=== PATIENT | female | born 1975 | race Caucasian/White ===

== ENCOUNTER 2017-08-31 22:25 | Emergency (ER) | payer MEDICARE, MEDICAID ==
[~2017-08-31] VITALS: Ht 167.6 cm; Wt 113.0 kg
[~2017-08-31 22:25] MED LIST: ALBU8.5H8 INH; ARMO250T4 PO; ASPI-1265 PO; BACL10TA PO; CALC667T5 PO; DOCU-28 PO; DULO-31 PO; ESOM40CA30 PO; ESTR2TAB PO; FAMO-128 PO; FLUT1DIS4 INH; HYDR-565 PO; LAMO150T2 PO; LEVO175T2 PO; METF500T7 PO; METO-292 PO; MULT-933 PO; ONDA4TAB12 PO; PREG150C PO; ROSU20TA PO; SENN1TAB5 PO; SITA25TA3 PO; VIT1TABL91 PO; ZOLP10TA5 PO; [UNRECOGNIZED DRUG - OTHER] PO; loratadine PO
[2017-08-31] MEDS ORDERED: ondansetron/PF 4mg/2ml inj IV ONE (23:20)
[2017-08-31] MEDS ORDERED: normal saline 1000ML IV soln IVB ONE (23:20)
[2017-08-31] MEDS ORDERED: morphine 4 MG/ML inj SYRINge IV ONE (23:20)
[2017-08-31 23:40] LABS: BASOPHILS % (AUTO) 0.4 % (0-1); EOSINOPHILS # (AUTO) 0.2 X10'3 (0-0.9); HEMOGLOBIN 10.8 g/dl (12.0-16.0); LYMPHOCYTES # (AUTO) 1.8 X10'3 (1.1-4.8); LYMPHOCYTES % (AUTO) 14.5 % (21-51); MEAN CORPUSCULAR HEMOGLOBIN 25.3 PG (27.0-31.0); MEAN CORPUSCULAR HGB CONC 32.7 % (33.0-36.5); MEAN CORPUSCULAR VOLUME 77.3 FL (78-98); MEAN PLATELET VOLUME 9.6 FL (7.4-10.4); MONOCYTES # (AUTO) 0.2 X10'3 (0-0.9); MONOCYTES % (AUTO) 1.3 % (2-12); NEUTROPHILS % (AUTO) 81.8 % (42-75); PLATELET COUNT 274 X10'3 (140-440); RED BLOOD COUNT 4.27 X10'6 (4.20-5.60); RED CELL DISTRIBUTION WIDTH 17.3 % (11.5-14.5); WHITE BLOOD COUNT 12.2 X10'3 (4.5-11.0)
[2017-08-31 23:53] LABS: ALANINE AMINOTRANSFERASE 33 U/L (12-78); ALBUMIN 3.1 G/DL (3.4-5.0); ALBUMIN/GLOBULIN RATIO 0.8 (1.1-1.5); ALKALINE PHOSPHATASE 59 IU/L (46-116); ANION GAP 10 (8-16); ASPARTATE AMINO TRANSFERASE 37 U/L (10-37); BILIRUBIN,TOTAL 0.5 MG/DL (0.1-1.0); BLOOD UREA NITROGEN 9 MG/DL (7-18); CALCIUM 8.8 MG/DL (8.5-10.1); CHLORIDE 101 MMOL/L (99-107); GLUCOSE 155 MG/DL (70-104); LIPASE 169 U/L (73-393); POTASSIUM 3.9 MMOL/L (3.5-5.1); SODIUM 137 MMOL/L (135-145); TOTAL CARBON DIOXIDE 25.6 MMOL/L (24-32); TOTAL PROTEIN 7.1 G/DL (6.4-8.2); eGFR 69 ML/MIN
[2017-09-01 00:01] LABS: UA COLLECTION TYPE CLN CATCH MIDSTREAM
[2017-09-01 00:02] LABS: CLARITY,URINE CLEAR (Clear); COLOR,URINE YELLOW (Yellow); GLUCOSE, URINE >=1000 mg/dl (Neg); KETONES,URINE NEGATIVE (Neg); LEUKOCYTE ESTERASE ,URINE NEGATIVE (Neg); NITRITES, URINE NEGATIVE (Neg); OCCULT BLOOD,URINE NEGATIVE (Neg); PH,URINE 5.5 (4.8-8.0); PROTEIN,URINE NEGATIVE (Neg); UROBILINOGEN,URINE 0.2 E.U/dL (0.2-1.0)
[2017-09-01 00:21] LABS: BACTERIA,URINE FEW /HPF (Neg); RBC,URINE NONE SEEN /HPF (0-2); WBC,URINE 0-4 /HPF (0-4)
[2017-09-01 00:22] LABS: MUCUS STRANDS NONE SEEN /LPF (Neg); SQUAMOUS EPITHELIAL CELL,UR FEW /LPF (FEW); YEAST FEW /HPF (NEGATIVE)
[2017-09-01] MEDS ORDERED: ibuprofen tablet 400 MG TABLET PO ONE (01:05)
[2017-09-01] MEDS ORDERED: IBUP-1984 PO (01:06)
[2017-09-01] MEDS ORDERED: MAGN296S50 PO (01:06)
[2017-09-01 01:23] LABS: ANISOCYTOSIS 1+; PLATELET ESTIMATE NORMAL; POLYCHROMASIA 1+
[2017-09-01 01:26] VITALS: BP 147/68
== END 2017-09-01 01:27 | disposition home or self-care (01) ==
LOC: ER 22:26
DX: B34.9 Viral infection, unspecified (principal); K59.00 Constipation, unspecified; D64.9 Anemia, unspecified; G89.29 Other chronic pain; E11.9 Type 2 diabetes mellitus without complications; Z90.710 Acquired absence of both cervix and uterus; Z88.1 Allergy status to other antibiotic agents; Z79.82 Long term (current) use of aspirin; Z79.84 Long term (current) use of oral hypoglycemic drugs; Z79.899 Other long term (current) drug therapy
CPT/HCPCS: 36415; 74176; 80053; 81001; 83690; 85025; 96361; 96374; 96375; 99285; J2270; J2405; J7030; 81003

== ENCOUNTER 2019-02-13 07:38 | Emergency (ER) | payer MEDICARE, MEDICAID ==
[~2019-02-13] VITALS: Ht 167.6 cm; Wt 127.7 kg
[~2019-02-13 07:38] MED LIST changes: -CALC667T5 PO; +CALC667T6 PO; -ESOM40CA30 PO; +ESOM40CA49 PO; +HYDR-4353 PO; -HYDR-565 PO; +MAGN296S50 PO; +METF500T20 PO; -METF500T7 PO; -ROSU20TA PO; +ROSU20TA2 PO; +SENN-250 PO; -SENN1TAB5 PO
[2019-02-13] MEDS ORDERED: SULF1TAB49 PO (08:37)
[2019-02-13 09:13] VITALS: BP 155/74
== END 2019-02-13 09:14 | disposition home or self-care (01) ==
LOC: ER 07:39
DX: S60.562A Insect bite (nonvenomous) of left hand, initial encounter (principal); L03.114 Cellulitis of left upper limb; Z88.1 Allergy status to other antibiotic agents; Z88.8 Allergy status to other drugs, medicaments and biological substances; Z79.82 Long term (current) use of aspirin; Z79.84 Long term (current) use of oral hypoglycemic drugs; Z79.899 Other long term (current) drug therapy; W57.XXXA Bitten or stung by nonvenomous insect and other nonvenomous arthropods, initial encounter; Y93.89 Activity, other specified; Y92.89 Other specified places as the place of occurrence of the external cause; Y99.8 Other external cause status
CPT/HCPCS: 99283

== ENCOUNTER 2020-06-17 15:38 | Outpatient (CLI) | payer MEDICARE, MEDICAID ==
[~2020-06-17 15:38] MED LIST changes: -MAGN296S50 PO; +MAGN296S70 PO; +METF-900 PO; -METF500T20 PO
== END 2020-06-17 23:59 | disposition home or self-care (01) ==
LOC: RAD 15:38
DX: Z79.899 Other long term (current) drug therapy (principal)
CPT/HCPCS: 93005

== ENCOUNTER 2021-05-01 17:08 | Emergency (ER) | payer MEDICARE, MEDICAID ==
[~2021-05-01] VITALS: Ht 167.6 cm; Wt 126.4 kg
[~2021-05-01 17:08] MED LIST changes: +ALBU8.5H17 INH; -ALBU8.5H8 INH; -ESTR2TAB PO; +ESTR2TAB50 PO
[2021-05-01 17:11] VITALS: BP 148/79
[2021-05-01 17:45] LABS: URINE HCG NEGATIVE (NEG)
[2021-05-01 17:49] LABS: CLARITY,URINE CLEAR (Clear); COLOR,URINE YELLOW (Yellow); GLUCOSE, URINE >=1000 mg/dl (Neg); KETONES,URINE NEGATIVE (Neg); LEUKOCYTE ESTERASE ,URINE NEGATIVE (Neg); NITRITES, URINE NEGATIVE (Neg); OCCULT BLOOD,URINE NEGATIVE (Neg); PROTEIN,URINE NEGATIVE (Neg); UROBILINOGEN,URINE 0.2 E.U/dL (0.2-1.0)
[2021-05-01 17:56] LABS: UA COLLECTION TYPE CLN CATCH MIDSTREAM
[2021-05-01 17:57] LABS: BACTERIA,URINE NONE SEEN /HPF (Neg); MUCUS STRANDS NONE SEEN /LPF (Neg); RBC,URINE NONE SEEN /HPF (0-2); SQUAMOUS EPITHELIAL CELL,UR FEW /LPF (FEW); WBC,URINE NONE SEEN /HPF (0-4); YEAST FEW /HPF (NEGATIVE)
[2021-05-01 18:58] LABS: BASOPHILS # (AUTO) 0.1 X10'3 (0-0.2); BASOPHILS % (AUTO) 0.8 % (0-1); EOSINOPHILS # (AUTO) 0.2 X10'3 (0-0.9); EOSINOPHILS % (AUTO) 2.2 % (0-6); HEMOGLOBIN 12.3 g/dl (12.0-16.0); LYMPHOCYTES # (AUTO) 3.4 X10'3 (1.1-4.8); LYMPHOCYTES % (AUTO) 33.5 % (21-51); MEAN CORPUSCULAR HEMOGLOBIN 28.6 PG (27.0-31.0); MEAN CORPUSCULAR VOLUME 84.1 FL (78-98); MEAN PLATELET VOLUME 8.8 FL (7.4-10.4); MONOCYTES # (AUTO) 0.4 X10'3 (0-0.9); MONOCYTES % (AUTO) 3.8 % (2-12); NEUTROPHILS # (AUTO) 6.1 X10'3 (1.8-7.7); NEUTROPHILS % (AUTO) 59.7 % (42-75); PLATELET COUNT 271 X10'3 (140-440); RED BLOOD COUNT 4.28 X10'6 (4.20-5.60); RED CELL DISTRIBUTION WIDTH 16.7 % (11.5-14.5); WHITE BLOOD COUNT 10.3 X10'3 (4.5-11.0)
[2021-05-01 19:05] LABS: ALANINE AMINOTRANSFERASE 48 U/L (12-78); ALBUMIN 3.4 G/DL (3.4-5.0); ALBUMIN/GLOBULIN RATIO 0.8 (1.1-1.5); ALKALINE PHOSPHATASE 94 IU/L (46-116); ANION GAP 6 (8-16); ASPARTATE AMINO TRANSFERASE 39 U/L (10-37); BILIRUBIN,TOTAL 0.4 MG/DL (0.1-1.0); BLOOD UREA NITROGEN 11 MG/DL (7-18); BUN/CREATININE RATIO 14.3 (6.6-38.0); CALCIUM 9.3 MG/DL (8.5-10.1); CHLORIDE 103 MMOL/L (99-107); CREATININE 0.77 MG/DL (0.40-0.90); GLUCOSE 185 MG/DL (70-104); POTASSIUM 3.9 MMOL/L (3.5-5.1); SODIUM 137 MMOL/L (135-145); TOTAL CARBON DIOXIDE 28.1 MMOL/L (24-32); TOTAL PROTEIN 7.5 G/DL (6.4-8.2); eGFR 81 ML/MIN
== END 2021-05-01 19:15 | disposition home or self-care (01) ==
LOC: ER 17:08
DX: E11.649 Type 2 diabetes mellitus with hypoglycemia without coma (principal); E11.9 Type 2 diabetes mellitus without complications; G89.29 Other chronic pain; M54.2 Cervicalgia; Z88.1 Allergy status to other antibiotic agents; Z88.8 Allergy status to other drugs, medicaments and biological substances; Z79.899 Other long term (current) drug therapy
CPT/HCPCS: 36415; 80053; 81001; 81025; 82948; 85025; 99283

== ENCOUNTER 2022-02-06 23:05 | Emergency (ER) | payer MEDICARE, MEDICAID ==
[~2022-02-06] VITALS: Ht 167.6 cm; Wt 129.6 kg
[~2022-02-06 23:05] MED LIST changes: +ALBU8.5H17 IH; -ALBU8.5H17 INH; +ARMO200T4 PO; -ARMO250T4 PO; -ASPI-1265 PO; -BACL10TA PO; +BACL20TA PO; +BUPR-317 PO; -CALC667T6 PO; +CANA300T PO; -DOCU-28 PO; -DULO-31 PO; -ESOM40CA49 PO; -ESTR2TAB50 PO; -FAMO-128 PO; +FLUO40CA PO; -FLUT1DIS4 INH; +GLIM4TAB7 PO; -HYDR-4353 PO; -LAMO150T2 PO; +LANTUS SQ; -LEVO175T2 PO; +LEVO75TA98 PO; +LINA5TAB4 PO; +LORA10TA7 PO; -MAGN296S70 PO; +METF-1203 PO; -METF-900 PO; -METO-292 PO; +MONT-40 PO; -MULT-933 PO; -ONDA4TAB12 PO; +OXCA300T16 PO; -PREG150C PO; +PREG150C46 PO; -ROSU20TA2 PO; +ROSU40TA22 PO; -SENN-250 PO; -SITA25TA3 PO; -VIT1TABL91 PO; -ZOLP10TA5 PO; +ZOLP5TAB8 PO; -[UNRECOGNIZED DRUG - OTHER] PO; -loratadine PO
--- NOTE | 2022-02-06 23:33 | NUR ---
PT TO XRAY VIA WHEEKL CHAIR . PT THEN TAKEN TO ROOM 16
[2022-02-06 23:47] LABS: BASOPHILS # (AUTO) 0.1 X10'3 (0-0.2); BASOPHILS % (AUTO) 1.1 % (0-1); EOSINOPHILS # (AUTO) 0.2 X10'3 (0-0.9); EOSINOPHILS % (AUTO) 2.5 % (0-6); HEMOGLOBIN 12.1 g/dl (12.0-16.0); LYMPHOCYTES # (AUTO) 4.4 X10'3 (1.1-4.8); LYMPHOCYTES % (AUTO) 44.8 % (21-51); MEAN CORPUSCULAR HEMOGLOBIN 27.3 PG (27.0-31.0); MEAN CORPUSCULAR HGB CONC 32.8 g/dL (33.0-36.5); MEAN CORPUSCULAR VOLUME 83.3 FL (78-98); MEAN PLATELET VOLUME 8.8 FL (7.4-10.4); MONOCYTES # (AUTO) 0.6 X10'3 (0-0.9); MONOCYTES % (AUTO) 5.9 % (2-12); NEUTROPHILS # (AUTO) 4.5 X10'3 (1.8-7.7); NEUTROPHILS % (AUTO) 45.7 % (42-75); PLATELET COUNT 239 X10'3 (140-440); RED BLOOD COUNT 4.44 X10'6 (4.20-5.60); WHITE BLOOD COUNT 9.8 X10'3 (4.5-11.0)
[2022-02-06 23:52] LABS: ALANINE AMINOTRANSFERASE 76 U/L (12-78); ALBUMIN 3.3 G/DL (3.4-5.0); ALBUMIN/GLOBULIN RATIO 0.9 (1.1-1.5); ALKALINE PHOSPHATASE 86 IU/L (46-116); ANION GAP 8 (8-16); ASPARTATE AMINO TRANSFERASE 51 U/L (10-37); BILIRUBIN,TOTAL 0.2 MG/DL (0.1-1.0); BLOOD UREA NITROGEN 10 MG/DL (7-18); BUN/CREATININE RATIO 12.2 (6.6-38.0); CALCIUM 8.7 MG/DL (8.5-10.1); CHLORIDE 100 MMOL/L (99-107); CREATININE 0.82 MG/DL (0.40-0.90); GLUCOSE 244 MG/DL (70-104); SODIUM 137 MMOL/L (135-145); TOTAL CARBON DIOXIDE 28.6 MMOL/L (24-32); TOTAL PROTEIN 7.1 G/DL (6.4-8.2); eGFR 75 ML/MIN
[2022-02-07 00:04] LABS: POTASSIUM 3.8 MMOL/L (3.5-5.1)
[2022-02-07] MEDS ORDERED: mag hydrox/Alum hydrox/simeth 30ml oral suspension PO ONE (01:00)
[2022-02-07] MEDS ORDERED: LIDOcaine Viscous 15ml cup MM PRN (01:00)
[2022-02-07] MEDS ORDERED: morphine 2 MG/ML inj. syringe IV ONE (01:00)
[2022-02-07] MEDS ORDERED: aspirin 81mg tab.chew PO ONE (01:00)
[2022-02-07] MEDS ORDERED: ondansetron/PF 4mg/2ml inj IV ONE (01:00)
[2022-02-07 01:24] LABS: D-DIMER 0.21 MG/L FEU (0-0.50)
[2022-02-07 04:48] VITALS: BP 137/60
== END 2022-02-07 04:53 | disposition home or self-care (01) ==
LOC: ER 23:05
DX: R07.89 Other chest pain (principal); E78.00 Pure hypercholesterolemia, unspecified; E11.9 Type 2 diabetes mellitus without complications; G89.29 Other chronic pain; Z90.710 Acquired absence of both cervix and uterus; Z56.0 Unemployment, unspecified; Z88.1 Allergy status to other antibiotic agents; Z79.4 Long term (current) use of insulin; Z79.899 Other long term (current) drug therapy
CPT/HCPCS: 36415; 71045; 80053; 83880; 84484; 85025; 85379; 93005; 96374; 99285; J2405

== ENCOUNTER 2022-02-13 09:51 | Emergency (ER) | payer MEDICARE, MEDICAID ==
[~2022-02-13] VITALS: Ht 167.6 cm; Wt 130.9 kg
[2022-02-13 09:53] VITALS: BP 176/79
[2022-02-13] MEDS ORDERED: ketorolac trometh. 30mg/ml inj. IM ONE (10:30)
[2022-02-13 10:45] LABS: CLARITY,URINE CLEAR (Clear); COLOR,URINE YELLOW (Yellow); GLUCOSE, URINE >=1000 mg/dl (Neg); KETONES,URINE NEGATIVE (Neg); LEUKOCYTE ESTERASE ,URINE NEGATIVE (Neg); NITRITES, URINE NEGATIVE (Neg); OCCULT BLOOD,URINE NEGATIVE (Neg); PH,URINE 5.5 (4.8-8.0); PROTEIN,URINE NEGATIVE (Neg); UROBILINOGEN,URINE 0.2 E.U/dL (0.2-1.0)
[2022-02-13 10:47] LABS: URINE HCG NEGATIVE (NEG)
[2022-02-13 10:52] LABS: UA COLLECTION TYPE CLN CATCH MIDSTREAM
[2022-02-13 10:53] LABS: BACTERIA,URINE NONE SEEN /HPF (Neg); MUCUS STRANDS NONE SEEN /LPF (Neg); RBC,URINE 0-2 /HPF (0-2); SQUAMOUS EPITHELIAL CELL,UR FEW /LPF (FEW); WBC,URINE NONE SEEN /HPF (0-4)
[2022-02-13] MEDS ORDERED: oxyCODONE IR 5mg (immed. release) tablet PO ONE (11:00)
[2022-02-13] MEDS ORDERED: OXYC-481 PO (11:51)
== END 2022-02-13 12:09 | disposition home or self-care (01) ==
LOC: ER 09:51
DX: M54.89 Other dorsalgia (principal); E78.00 Pure hypercholesterolemia, unspecified; E11.9 Type 2 diabetes mellitus without complications; G89.29 Other chronic pain; Z90.710 Acquired absence of both cervix and uterus; Z56.0 Unemployment, unspecified; Z88.1 Allergy status to other antibiotic agents; Z91.013 Allergy to seafood; Z88.8 Allergy status to other drugs, medicaments and biological substances; Z79.4 Long term (current) use of insulin; Z79.899 Other long term (current) drug therapy
CPT/HCPCS: 71045; 81001; 81025; 96372; 99285; J1885

== ENCOUNTER 2022-02-14 05:09 | Emergency (ER) | payer MEDICARE, MEDICAID ==
[~2022-02-14] VITALS: Ht 167.6 cm; Wt 130.9 kg
[~2022-02-14 05:09] MED LIST changes: +OXYC-481 PO
[2022-02-14] MEDS ORDERED: mag hydrox/Alum hydrox/simeth 30ml oral suspension PO ONE (07:05)
[2022-02-14] MEDS ORDERED: LIDOcaine Viscous 15ml cup MM ONE (07:05)
[2022-02-14] MEDS ORDERED: ketorolac tromethamine 15mg/ml inj. IV ONE (07:05)
[2022-02-14 07:51] LABS: BASOPHILS # (AUTO) 0.1 X10'3 (0-0.2); BASOPHILS % (AUTO) 1.2 % (0-1); EOSINOPHILS # (AUTO) 0.2 X10'3 (0-0.9); EOSINOPHILS % (AUTO) 1.7 % (0-6); HEMATOCRIT 38.1 % (35.0-45.0); HEMOGLOBIN 12.7 g/dl (12.0-16.0); LYMPHOCYTES # (AUTO) 3.2 X10'3 (1.1-4.8); LYMPHOCYTES % (AUTO) 31.2 % (21-51); MEAN CORPUSCULAR HEMOGLOBIN 27.8 PG (27.0-31.0); MEAN CORPUSCULAR HGB CONC 33.4 g/dL (33.0-36.5); MEAN CORPUSCULAR VOLUME 83.2 FL (78-98); MEAN PLATELET VOLUME 9.1 FL (7.4-10.4); MONOCYTES # (AUTO) 0.5 X10'3 (0-0.9); MONOCYTES % (AUTO) 5.1 % (2-12); NEUTROPHILS # (AUTO) 6.2 X10'3 (1.8-7.7); NEUTROPHILS % (AUTO) 60.8 % (42-75); PLATELET COUNT 234 X10'3 (140-440); RED BLOOD COUNT 4.57 X10'6 (4.20-5.60); RED CELL DISTRIBUTION WIDTH 16.3 % (11.5-14.5); WHITE BLOOD COUNT 10.2 X10'3 (4.5-11.0)
[2022-02-14 07:54] LABS: CLARITY,URINE CLEAR (Clear); COLOR,URINE YELLOW (Yellow); GLUCOSE, URINE >=1000 mg/dl (Neg); KETONES,URINE NEGATIVE (Neg); LEUKOCYTE ESTERASE ,URINE NEGATIVE (Neg); NITRITES, URINE NEGATIVE (Neg); OCCULT BLOOD,URINE NEGATIVE (Neg); PH,URINE 5.5 (4.8-8.0); PROTEIN,URINE NEGATIVE (Neg); UROBILINOGEN,URINE 0.2 E.U/dL (0.2-1.0)
[2022-02-14 07:54] LABS: ALANINE AMINOTRANSFERASE 70 U/L (12-78); ALBUMIN 3.6 G/DL (3.4-5.0); ALBUMIN/GLOBULIN RATIO 0.9 (1.1-1.5); ALKALINE PHOSPHATASE 75 IU/L (46-116); ANION GAP 4 (8-16); ASPARTATE AMINO TRANSFERASE 53 U/L (10-37); BILIRUBIN,TOTAL 0.3 MG/DL (0.1-1.0); BLOOD UREA NITROGEN 18 MG/DL (7-18); BUN/CREATININE RATIO 26.1 (6.6-38.0); CALCIUM 8.7 MG/DL (8.5-10.1); CHLORIDE 102 MMOL/L (99-107); CREATININE 0.69 MG/DL (0.40-0.90); GLUCOSE 185 MG/DL (70-104); POTASSIUM 3.8 MMOL/L (3.5-5.1); SODIUM 134 MMOL/L (135-145); TOTAL CARBON DIOXIDE 28.3 MMOL/L (24-32); TOTAL PROTEIN 7.4 G/DL (6.4-8.2); eGFR > 90 ML/MIN
[2022-02-14 07:57] LABS: LIPASE 98 U/L (73-393)
[2022-02-14 08:02] LABS: UA COLLECTION TYPE CLN CATCH MIDSTREAM
[2022-02-14 08:04] LABS: BACTERIA,URINE NONE SEEN /HPF (Neg); MUCUS STRANDS MODERATE /LPF (Neg); RBC,URINE NONE SEEN /HPF (0-2); SQUAMOUS EPITHELIAL CELL,UR MODERATE /LPF (FEW); WBC,URINE 0-4 /HPF (0-4)
[2022-02-14] MEDS ORDERED: acetaminophen 325mg tablet PO ONE (09:05)
[2022-02-14] MEDS ORDERED: LIDOcaine 5% patch TP ONE (09:05)
[2022-02-14 09:14] LABS: D-DIMER < 0.19 MG/L FEU (0-0.50)
[2022-02-14] MEDS ORDERED: morphine 4 MG/ML inj SYRINge IV ONE (10:25)
[2022-02-14 10:43] LABS: URINE HCG NEGATIVE (NEG)
[2022-02-14 13:12] VITALS: BP 148/82
== END 2022-02-14 13:14 | disposition home or self-care (01) ==
LOC: ER 05:09
DX: M54.50 Low back pain, unspecified (principal); R10.84 Generalized abdominal pain; E78.00 Pure hypercholesterolemia, unspecified; E11.9 Type 2 diabetes mellitus without complications; G89.29 Other chronic pain; Z90.710 Acquired absence of both cervix and uterus; Z56.0 Unemployment, unspecified; Z91.013 Allergy to seafood; Z88.1 Allergy status to other antibiotic agents; Z88.8 Allergy status to other drugs, medicaments and biological substances; Z79.4 Long term (current) use of insulin; Z79.899 Other long term (current) drug therapy
CPT/HCPCS: 36415; 71045; 74176; 80053; 81001; 81025; 83690; 84484; 85025; 85379; 85610; 96374; 96375; 99285; J1885; J2270

== ENCOUNTER 2022-05-24 12:47 | Day surgery (SDC) | payer MEDICARE, MEDICAID ==
[2022-05-20 09:28] LABS: BASOPHILS # (AUTO) 0.1 X10'3 (0-0.2); BASOPHILS % (AUTO) 1.1 % (0-1); EOSINOPHILS # (AUTO) 0.2 X10'3 (0-0.9); EOSINOPHILS % (AUTO) 1.8 % (0-6); HEMATOCRIT 37.5 % (35.0-45.0); HEMOGLOBIN 12.1 g/dl (12.0-16.0); LYMPHOCYTES # (AUTO) 3.4 X10'3 (1.1-4.8); MEAN CORPUSCULAR HEMOGLOBIN 27.6 PG (27.0-31.0); MEAN CORPUSCULAR HGB CONC 32.1 g/dL (33.0-36.5); MEAN CORPUSCULAR VOLUME 85.9 FL (78-98); MEAN PLATELET VOLUME 8.7 FL (7.4-10.4); MONOCYTES # (AUTO) 0.4 X10'3 (0-0.9); NEUTROPHILS # (AUTO) 6.9 X10'3 (1.8-7.7); NEUTROPHILS % (AUTO) 62.1 % (42-75); PLATELET COUNT 230 X10'3 (140-440); RED BLOOD COUNT 4.37 X10'6 (4.20-5.60); RED CELL DISTRIBUTION WIDTH 16.6 % (11.5-14.5); WHITE BLOOD COUNT 11.1 X10'3 (4.5-11.0)
[2022-05-20 09:41] LABS: APTT 25 SECONDS (22-32)
[2022-05-20 09:42] LABS: ALBUMIN 3.3 G/DL (3.4-5.0); ANION GAP 8 (8-16); BLOOD UREA NITROGEN 8 MG/DL (7-18); BUN/CREATININE RATIO 13.6 (6.6-38.0); CALCIUM 9.1 MG/DL (8.5-10.1); CHLORIDE 102 MMOL/L (99-107); CHOL/HDL RATIO 3.3 (0.00-4.99); CHOLESTEROL 133 MG/DL (0-200); CREATININE 0.59 MG/DL (0.40-0.90); GLUCOSE 151 MG/DL (70-104); HDL CHOLESTEROL 40 MG/DL (35-60); LDL CHOLESTEROL 66 MG/DL (50-100); POTASSIUM 3.9 MMOL/L (3.5-5.1); SODIUM 138 MMOL/L (135-145); TOTAL CARBON DIOXIDE 27.8 MMOL/L (24-32); TRIGLYCERIDES 227 MG/DL (20-135); eGFR > 90 ML/MIN
[~2022-05-24] VITALS: Ht 167.6 cm; Wt 128.2 kg
[~2022-05-24 12:47] MED LIST changes: -OXYC-481 PO
[2022-05-24 13:10] VITALS: BP 131/69
[2022-05-24] MEDS ORDERED: UBID100C16 PO (13:15)
[2022-05-24] MEDS ORDERED: Lutein PO (13:16)
[2022-05-24] MEDS ORDERED: SENN-263 PO (13:18)
[2022-05-24] MEDS ORDERED: ASPI-1265 PO (13:19)
[2022-05-24] MEDS ORDERED: LEVO75TA PO (13:20)
[2022-05-24] MEDS ORDERED: ESOM40CA PO (13:22)
[2022-05-24] MEDS ORDERED: TIZA-205 PO (13:29)
[2022-05-24] MEDS ORDERED: PRED10TA23 PO (13:31)
[2022-05-24] MEDS ORDERED: DIPH25CA83 PO (13:32)
[2022-05-24] MEDS ORDERED: INSU500I SQ (13:34)
[2022-05-24] MEDS ORDERED: INSU100V5 SQ ×2 (13:36)
[2022-05-24] MEDS ORDERED: midazolam 1 mg/ML 2ml injection ONE ×2 (13:58→14:23)
[2022-05-24] MEDS ORDERED: fentaNYL/PF 50MCG/1 ML 2ML syringe ONE (13:58)
[2022-05-24] MEDS ORDERED: heparin 1,000 UNITS/NS 500ml 500 ML ONE (13:59)
[2022-05-24] MEDS ORDERED: LIDOcaine 1% 30ml preserv. free vial ONE (14:02)
[2022-05-24] MEDS ORDERED: normal saline 1000ml 1,000 ML IV SCH (14:45)
[2022-05-24 14:50] VITALS: BP 140/71
[2022-05-24 15:05] VITALS: BP 146/45
[2022-05-24 15:20] VITALS: BP 151/69
[2022-05-24 15:35] VITALS: BP 153/78
[2022-05-25 06:13] LABS: ISTAT Hct MIX 38 %PCV (35-45); ISTAT O2 SATURATION MIX VENOUS 67 % (60-80); ISTAT SOURCE OTHER
== END 2022-05-24 16:00 | disposition home or self-care (01) ==
LOC: SSTAY O 12:47
PROVIDERS: ATTEND Student in an Organized Health Care Education/Training Program
DX: I27.20 Pulmonary hypertension, unspecified (principal); E11.9 Type 2 diabetes mellitus without complications; Z79.899 Other long term (current) drug therapy; Z79.01 Long term (current) use of anticoagulants; Z88.8 Allergy status to other drugs, medicaments and biological substances; Z91.010 Allergy to peanuts; Z91.013 Allergy to seafood
CPT/HCPCS: 36415; 80048; 80061; 82803; 82948; 85014; 85025; 85610; 85730; 93005; 93451; J1644; J2250; J3010; J3490; J7030; 99152; C1751

== ENCOUNTER 2022-07-25 05:08 | Day surgery (SDC) | payer MEDICARE, MEDICAID ==
[2022-07-19 11:39] LABS: BASOPHILS # (AUTO) 0.1 X10'3 (0-0.2); EOSINOPHILS # (AUTO) 0.2 X10'3 (0-0.9); EOSINOPHILS % (AUTO) 1.6 % (0-6); LYMPHOCYTES # (AUTO) 3.5 X10'3 (1.1-4.8); LYMPHOCYTES % (AUTO) 29.5 % (21-51); MEAN CORPUSCULAR HEMOGLOBIN 27.4 PG (27.0-31.0); MEAN CORPUSCULAR HGB CONC 32.2 g/dL (33.0-36.5); MEAN CORPUSCULAR VOLUME 85.1 FL (78-98); MEAN PLATELET VOLUME 9.1 FL (7.4-10.4); MONOCYTES # (AUTO) 0.5 X10'3 (0-0.9); MONOCYTES % (AUTO) 3.9 % (2-12); NEUTROPHILS # (AUTO) 7.6 X10'3 (1.8-7.7); PRE OP HEMATOCRIT 38.6 % (35.0-45.0); PRE OP HEMOGLOBIN 12.5 g/dL (12.0-16.0); PRE OP PLATELET COUNT 251 X10'3 (140-440); RED BLOOD COUNT 4.54 X10'6 (4.20-5.60); RED CELL DISTRIBUTION WIDTH 17.4 % (11.5-14.5)
[2022-07-19 12:02] LABS: ALBUMIN 3.9 G/DL (3.4-5.0); ALKALINE PHOSPHATASE 104 IU/L (46-116); CALCIUM 9.7 MG/DL (8.5-10.1); CHLORIDE 105 MMOL/L (99-107); CREATININE 0.67 MG/DL (0.40-0.90); PRE OP ALT 58 U/L (30-65); PRE OP ANION GAP 5 (8-16); PRE OP AST 66 U/L (10-37); PRE OP BILIRUB, TOTAL 0.6 MG/DL (0.0-1.0); PRE OP GLUCOSE 174 MG/DL (70-104); PRE OP SODIUM 140 MMOL/L (135-145); TOTAL CARBON DIOXIDE 29.9 MMOL/L (24-32); eGFR > 90 ML/MIN
[2022-07-19 12:28] LABS: BLOOD UREA NITROGEN 11 MG/DL (7-18); BUN/CREATININE RATIO 16.4 (6.6-38.0)
[~2022-07-25] VITALS: Ht 167.6 cm; Wt 131.9 kg
[2022-07-25] VITALS (8 sets, daily range): BP systolic 108–137; BP diastolic 56–63
[~2022-07-25 05:08] MED LIST changes: +ARIP400S3 IM; -ARMO200T4 PO; +ARMO250T4 PO; +ASPI-1265 PO; -BACL20TA PO; -BUPR-317 PO; +CHOL200013 PO; +ESOM40CA49 PO; -GLIM4TAB7 PO; +INSU100V5 SQ; +INSU500I SQ; -LANTUS SQ; +LEVO75TA PO; -LEVO75TA98 PO; -LINA5TAB4 PO; +Lutein PO; +SENN-263 PO; +TIZA-205 PO; +UBID100C16 PO; +ringers solution, lacted 1,000 ML IV SCH
[2022-07-25] MEDS ORDERED: ceFAZolin inj. 3,000 MG in normal saline 100ml IV soln 100 ML IV ONE (05:30)
[2022-07-25] MEDS ORDERED: famotidine 20mg tablet PO ONE (05:30)
[2022-07-25] MEDS ORDERED: albuterol 2.5 MG/3 ML nebule NEB PRN (05:30)
[2022-07-25] MEDS ORDERED: BUPIVAcaine/PF 5 mg/ml 10ml ONE (06:42)
[2022-07-25] MEDS ORDERED: albuterol 2.5 MG/3 ML nebule NEB STA (06:45)
[2022-07-25] MEDS ORDERED: fentaNYL/PF 50MCG/1 ML 2ML syringe ONE (07:39)
[2022-07-25] MEDS ORDERED: midazolam 1 mg/ML 2ml injection ONE (07:39)
[2022-07-25] MEDS ORDERED: LIDOcaine 0.5% (5mg/ml) 50ml vial ONE (07:40)
[2022-07-25] MEDS ORDERED: propofol inj 20 ML IV ONE (07:57)
--- NOTE | 2022-07-25 08:11 | NUR ---
Received from OR via baljit to room 5, accompanied by Anesthesiologist dr bui report given by Anesthesiolgist. Pt presents with 20g left hand, wrap with dressing on left hand, ica pack applied on right wrist, vss. Addendum: 07/25/22 at 0824 by Nichole Andrews RN, RN Amended: Links added.
[2022-07-25] MEDS ORDERED: proCHLORperazine 10 MG/2 ml inj IV PRN (08:15)
[2022-07-25] MEDS ORDERED: ringers solution, lacted 1,000 ML IV SCH (08:15)
[2022-07-25] MEDS ORDERED: ondansetron/PF 4mg/2ml inj IV PRN (08:15)
[2022-07-25] MEDS ORDERED: morphine 4 MG/ML inj SYRINge IV PRN (08:15)
[2022-07-25] MEDS ORDERED: morphine 2 MG/ML inj. syringe IV PRN (08:15)
[2022-07-25] MEDS ORDERED: meperidine/PF 25mg/ml syringe IV PRN ×3 (08:15)
--- NOTE | 2022-07-25 09:11 | NUR ---
I HAVE REVIEWED D/C INSTRUCTIONS WITH PATIENT and they have verbalized understanding patient d/c home with all belongings and family gave transport home. Addendum: 07/25/22 at 0920 by Nichole Andrews RN, RN Amended: Links added.
== END 2022-07-25 09:11 | disposition home or self-care (01) ==
LOC: PAS 05:08
PROVIDERS: ATTEND Orthopaedic Surgery Hand Surgery
DX: G56.01 Carpal tunnel syndrome, right upper limb (principal); B07.8 Other viral warts; J45.909 Unspecified asthma, uncomplicated; G89.29 Other chronic pain; G47.30 Sleep apnea, unspecified; K21.9 Gastro-esophageal reflux disease without esophagitis; D64.9 Anemia, unspecified; F31.9 Bipolar disorder, unspecified; F98.8 Other specified behavioral and emotional disorders with onset usually occurring in childhood and adolescence; F41.9 Anxiety disorder, unspecified; M19.90 Unspecified osteoarthritis, unspecified site; E11.9 Type 2 diabetes mellitus without complications; E66.9 Obesity, unspecified; Z68.42 Body mass index [BMI] 45.0-49.9, adult; Z86.14 Personal history of Methicillin resistant Staphylococcus aureus infection; Z79.82 Long term (current) use of aspirin; Z79.4 Long term (current) use of insulin; Z79.899 Other long term (current) drug therapy; Z88.8 Allergy status to other drugs, medicaments and biological substances; Z88.1 Allergy status to other antibiotic agents; Z87.891 Personal history of nicotine dependence; Z90.710 Acquired absence of both cervix and uterus
CPT/HCPCS: 11424; 29848; 36415; 80053; 82948; 85025; J0690; J2250; J2704; J3010; J3490; J7030; J7120; Z7506; Z7512; A4215; A7000

== ENCOUNTER 2022-08-22 05:26 | Day surgery (SDC) | payer MEDICARE, MEDICAID ==
[2022-08-15 11:51] LABS: BASOPHILS # (AUTO) 0.1 X10'3 (0-0.2); BASOPHILS % (AUTO) 1.3 % (0-1); EOSINOPHILS # (AUTO) 0.1 X10'3 (0-0.9); EOSINOPHILS % (AUTO) 1.5 % (0-6); LYMPHOCYTES # (AUTO) 3.1 X10'3 (1.1-4.8); MEAN CORPUSCULAR HEMOGLOBIN 27.5 PG (27.0-31.0); MEAN CORPUSCULAR HGB CONC 32.4 g/dL (33.0-36.5); MEAN PLATELET VOLUME 8.8 FL (7.4-10.4); MONOCYTES # (AUTO) 0.4 X10'3 (0-0.9); MONOCYTES % (AUTO) 4.3 % (2-12); NEUTROPHILS % (AUTO) 60.9 % (42-75); PRE OP HEMATOCRIT 36.9 % (35.0-45.0); PRE OP PLATELET COUNT 213 X10'3 (140-440); RED BLOOD COUNT 4.35 X10'6 (4.20-5.60); RED CELL DISTRIBUTION WIDTH 17.4 % (11.5-14.5)
[2022-08-15 12:04] LABS: ALBUMIN 3.4 G/DL (3.4-5.0); ALBUMIN/GLOBULIN RATIO 0.9 (1.1-1.5); ALKALINE PHOSPHATASE 91 IU/L (46-116); BLOOD UREA NITROGEN 7 MG/DL (7-18); BUN/CREATININE RATIO 11.9 (10.0-20.0); CALCIUM 8.9 MG/DL (8.5-10.1); CHLORIDE 107 MMOL/L (99-107); CREATININE 0.59 MG/DL (0.40-0.90); PRE OP ALT 53 U/L (30-65); PRE OP ANION GAP 6 (8-16); PRE OP AST 53 U/L (10-37); PRE OP BILIRUB, TOTAL 0.4 MG/DL (0.0-1.0); PRE OP GLUCOSE 145 MG/DL (70-104); PRE OP POTASSIUM 3.9 MMOL/L (3.4-5.1); PRE OP SODIUM 141 MMOL/L (135-145); TOTAL CARBON DIOXIDE 27.8 MMOL/L (24-32); TOTAL PROTEIN 7.2 G/DL (6.4-8.2); eGFR > 90 ML/MIN
[2022-08-22] VITALS (7 sets, daily range): BP systolic 94–143; BP diastolic 52–78
[~2022-08-22] VITALS: Ht 167.6 cm; Wt 132.9 kg
[2022-08-22] MEDS ORDERED: ceFAZolin inj. 3,000 MG in normal saline 100ml IV soln 100 ML IV ONE (05:30)
[2022-08-22] MEDS ORDERED: famotidine 20mg tablet PO ONE (05:30)
[2022-08-22] MEDS ORDERED: morphine 2 MG/ML inj. syringe IV PRN (07:15)
[2022-08-22] MEDS ORDERED: labetalol 20mg/4ml (5mg/ml) syringe IV PRN (07:15)
[2022-08-22] MEDS ORDERED: morphine 4 MG/ML inj SYRINge IV PRN (07:15)
[2022-08-22] MEDS ORDERED: ringers solution, lacted 1,000 ML IV SCH (07:15)
[2022-08-22] MEDS ORDERED: ondansetron/PF 4mg/2ml inj IV PRN (07:15)
[2022-08-22] MEDS ORDERED: BUPIVAcaine/PF 5 mg/ml 10ml ONE (07:46)
[2022-08-22] MEDS ORDERED: fentaNYL/PF 50MCG/1 ML 2ML syringe ONE (08:32)
[2022-08-22] MEDS ORDERED: MIDAZolam 1 MG/ML 5ML VIAL ONE (08:32)
--- NOTE | 2022-08-22 08:57 | NUR ---
Received from OR via , accompanied by Anesthesiologist DANILO AND OR NURSE and report given by Anesthesiolgist. PT IS DROWSY YET RESPONDS TO VERBAL STIMULI. PT DENIES PAIN OR DISCOMFORT. 20G TO RT HAND. VSS Addendum: 08/22/22 at 0941 by Kenzie Lou RN Amended: Links added.
--- NOTE | 2022-08-22 09:57 | NUR ---
I HAVE REVIEWED D/C INSTRUCTIONS WITH PATIENT AND THEY HAVE VERBALIZED UNDERSTANDING OF INSTRUCTIONS. PATIENT D/C HOME WITH ALL BELONGINGS AND FAMILY GAVE TRANSPORT Addendum: 08/22/22 at 1007 by Kenzie Lou RN Amended: Links added.
[2022-08-22] MEDS ORDERED: LIDOcaine 0.5% (5mg/ml) 50ml vial ONE (10:49)
== END 2022-08-22 09:57 | disposition home or self-care (01) ==
LOC: PAS 05:26
PROVIDERS: ATTEND Orthopaedic Surgery Hand Surgery
DX: G56.02 Carpal tunnel syndrome, left upper limb (principal); E66.01 Morbid (severe) obesity due to excess calories; Z68.42 Body mass index [BMI] 45.0-49.9, adult; G47.30 Sleep apnea, unspecified; E11.9 Type 2 diabetes mellitus without complications; I27.20 Pulmonary hypertension, unspecified; J45.909 Unspecified asthma, uncomplicated; K21.9 Gastro-esophageal reflux disease without esophagitis; F31.9 Bipolar disorder, unspecified; F98.8 Other specified behavioral and emotional disorders with onset usually occurring in childhood and adolescence; F41.9 Anxiety disorder, unspecified; M19.90 Unspecified osteoarthritis, unspecified site; D64.9 Anemia, unspecified; Z88.1 Allergy status to other antibiotic agents; Z88.8 Allergy status to other drugs, medicaments and biological substances; Z91.041 Radiographic dye allergy status; Z90.710 Acquired absence of both cervix and uterus; Z98.890 Other specified postprocedural states; Z79.82 Long term (current) use of aspirin; Z79.4 Long term (current) use of insulin; Z79.899 Other long term (current) drug therapy
CPT/HCPCS: 29848; 36415; 80053; 82948; 85025; A6222; J0690; J2250; J3010; J3490; J7030; J7120; Z7506; Z7512; A4215; A7000

== ENCOUNTER 2022-09-25 00:26 | Emergency (ER) | payer MEDICARE, MEDICAID ==
[~2022-09-25] VITALS: Ht 167.6 cm; Wt 133.2 kg
[~2022-09-25 00:26] MED LIST changes: -ringers solution, lacted 1,000 ML IV SCH
[2022-09-25 00:28] VITALS: BP 118/41
[2022-09-25] MEDS ORDERED: TETRACAINE 0.5% 4 ML OPHTHALMIC DROPS RIGHTEYE ONE (01:45)
[2022-09-25] MEDS ORDERED: LIDOcaine Viscous 15ml cup MM ONE (01:55)
[2022-09-25] MEDS ORDERED: BUPIVAcaine/PF 2.5 mg/ml (0.25%) 30ml vial IJ ONE (01:55)
[2022-09-25] MEDS ORDERED: LIDOcaine 1% 30ml preserv. free vial IJ ONE (01:55)
[2022-09-25] MEDS ORDERED: BUPIVAcaine/PF 2.5mg/ml (0.25%) 10ml vial IJ ONE ×2 (02:10)
[2022-09-25] MEDS ORDERED: AMOX-117 PO (03:35)
== END 2022-09-25 03:45 | disposition home or self-care (01) ==
LOC: ER 00:26
DX: K08.89 Other specified disorders of teeth and supporting structures (principal); E78.00 Pure hypercholesterolemia, unspecified; Z91.013 Allergy to seafood; Z91.041 Radiographic dye allergy status; Z88.8 Allergy status to other drugs, medicaments and biological substances; Z90.710 Acquired absence of both cervix and uterus; Z87.891 Personal history of nicotine dependence; Z56.0 Unemployment, unspecified
CPT/HCPCS: 64400; 99284

== ENCOUNTER 2022-10-04 10:22 | Emergency (ER) | payer MEDICARE, MEDICAID ==
[~2022-10-04] VITALS: Ht 167.6 cm; Wt 135.2 kg
[2022-10-04 10:27] VITALS: BP 154/71
[2022-10-04] MEDS ORDERED: acetaminophen 325mg tablet PO ONE (11:00)
[2022-10-04] MEDS ORDERED: ketorolac trometh inj. 60 MG/2 ML VIAL IM ONE (11:05)
== END 2022-10-04 13:45 | disposition home or self-care (01) ==
LOC: ER 10:23
DX: M54.9 Dorsalgia, unspecified (principal); G89.29 Other chronic pain; E11.9 Type 2 diabetes mellitus without complications; E78.00 Pure hypercholesterolemia, unspecified; Z91.013 Allergy to seafood; Z88.1 Allergy status to other antibiotic agents; Z88.8 Allergy status to other drugs, medicaments and biological substances; Z79.899 Other long term (current) drug therapy; Z79.1 Long term (current) use of non-steroidal anti-inflammatories (NSAID); Z79.2 Long term (current) use of antibiotics; V89.2XXA Person injured in unspecified motor-vehicle accident, traffic, initial encounter; Y93.89 Activity, other specified; Y92.89 Other specified places as the place of occurrence of the external cause; Y99.8 Other external cause status
CPT/HCPCS: 96372; 99283; J1885

== ENCOUNTER 2022-11-24 13:04 | Emergency (ER) | payer MEDICARE, MEDICAID ==
[~2022-11-24] VITALS: Ht 167.6 cm; Wt 136.4 kg
[2022-11-24 13:11] VITALS: BP 153/56
[2022-11-24 13:36] LABS: BASOPHILS # (AUTO) 0.1 X10'3 (0-0.2); BASOPHILS % (AUTO) 1.2 % (0-1); EOSINOPHILS # (AUTO) 0.2 X10'3 (0-0.9); EOSINOPHILS % (AUTO) 1.6 % (0-6); HEMOGLOBIN 11.6 g/dl (12.0-16.0); LYMPHOCYTES # (AUTO) 3.7 X10'3 (1.1-4.8); LYMPHOCYTES % (AUTO) 31.3 % (21-51); MEAN CORPUSCULAR HEMOGLOBIN 25.5 PG (27.0-31.0); MEAN CORPUSCULAR HGB CONC 31.2 g/dL (33.0-36.5); MEAN CORPUSCULAR VOLUME 81.5 FL (78-98); MEAN PLATELET VOLUME 9.1 FL (7.4-10.4); MONOCYTES # (AUTO) 0.5 X10'3 (0-0.9); MONOCYTES % (AUTO) 4.2 % (2-12); NEUTROPHILS # (AUTO) 7.3 X10'3 (1.8-7.7); NEUTROPHILS % (AUTO) 61.7 % (42-75); PLATELET COUNT 282 X10'3 (140-440); RED BLOOD COUNT 4.54 X10'6 (4.20-5.60); RED CELL DISTRIBUTION WIDTH 17.6 % (11.5-14.5); WHITE BLOOD COUNT 11.8 X10'3 (4.5-11.0)
[2022-11-24 13:45] LABS: URINE HCG NEGATIVE (NEG)
[2022-11-24 13:48] LABS: CLARITY,URINE CLEAR (Clear); COLOR,URINE YELLOW (Yellow); GLUCOSE, URINE >=1000 mg/dl (Neg); KETONES,URINE NEGATIVE (Neg); LEUKOCYTE ESTERASE ,URINE NEGATIVE (Neg); NITRITES, URINE NEGATIVE (Neg); OCCULT BLOOD,URINE NEGATIVE (Neg); PROTEIN,URINE NEGATIVE (Neg)
[2022-11-24 13:49] LABS: UA COLLECTION TYPE CLN CATCH MIDSTREAM
[2022-11-24 13:54] LABS: ALANINE AMINOTRANSFERASE 71 U/L (12-78); ALBUMIN 3.7 G/DL (3.4-5.0); ALKALINE PHOSPHATASE 72 IU/L (46-116); ANION GAP 11 (8-16); ASPARTATE AMINO TRANSFERASE 61 U/L (10-37); BILIRUBIN,TOTAL 0.3 MG/DL (0.1-1.0); BLOOD UREA NITROGEN 9 MG/DL (7-18); CHLORIDE 106 MMOL/L (99-107); CREATININE 0.82 MG/DL (0.40-0.90); GLUCOSE 108 MG/DL (70-104); LIPASE 125 U/L (73-393); POTASSIUM 3.8 MMOL/L (3.5-5.1); SODIUM 143 MMOL/L (135-145); TOTAL CARBON DIOXIDE 26.2 MMOL/L (24-32); TOTAL PROTEIN 7.4 G/DL (6.4-8.2); eGFR 74 ML/MIN
[2022-11-24 14:04] LABS: BACTERIA,URINE FEW /HPF (Neg); RBC,URINE NONE SEEN /HPF (0-2); SQUAMOUS EPITHELIAL CELL,UR MODERATE /LPF (FEW); TRANSITIONAL EPI CELLS,URINE MODERATE /HPF; WBC,URINE 0-4 /HPF (0-4); YEAST FEW /HPF (NEGATIVE)
== END 2022-11-24 15:48 | disposition home or self-care (01) ==
LOC: ER 13:05
DX: K42.9 Umbilical hernia without obstruction or gangrene (principal); K59.00 Constipation, unspecified; R10.13 Epigastric pain; D64.9 Anemia, unspecified; E78.00 Pure hypercholesterolemia, unspecified; E11.9 Type 2 diabetes mellitus without complications; G89.29 Other chronic pain; M54.9 Dorsalgia, unspecified; Z56.0 Unemployment, unspecified; Z91.013 Allergy to seafood; Z88.8 Allergy status to other drugs, medicaments and biological substances; Z79.899 Other long term (current) drug therapy; Z79.2 Long term (current) use of antibiotics; Z79.82 Long term (current) use of aspirin; Z79.84 Long term (current) use of oral hypoglycemic drugs
CPT/HCPCS: 36415; 80053; 81001; 81025; 83690; 85025; 87088; 99283

== ENCOUNTER 2023-02-25 14:37 | Emergency (ER) | payer MEDICARE, MEDICAID ==
[~2023-02-25] VITALS: Ht 167.6 cm; Wt 140.5 kg
[~2023-02-25 14:37] MED LIST changes: -PREG150C46 PO; +PREG150C47 PO
[2023-02-25 20:32] VITALS: BP 127/58; PULSE 78; RESP 18; TEMP 98; O2SAT 97
--- NOTE | 2023-02-25 20:54 | NUR ---
Kvng arzate in EDM - 02/25/23 at 2058 by MELISSA AGREE WITH INSURANCE COUNSELOR ASSESSMENT. PT IN STABLE CONDITION.
--- NOTE | 2023-02-25 20:59 | NUR ---
AGREE WITH GROMMET MACHINE OPERATOR ASSESS. PT IN STABLE CONDITION.
== END 2023-02-25 20:35 | disposition home or self-care (01) ==
LOC: ER 14:38
DX: I83.93 Asymptomatic varicose veins of bilateral lower extremities (principal); M79.661 Pain in right lower leg; E78.00 Pure hypercholesterolemia, unspecified; E11.9 Type 2 diabetes mellitus without complications; G89.29 Other chronic pain; M79.7 Fibromyalgia; Z56.0 Unemployment, unspecified; Z87.891 Personal history of nicotine dependence; Z90.710 Acquired absence of both cervix and uterus; Z91.013 Allergy to seafood; Z88.1 Allergy status to other antibiotic agents; Z88.8 Allergy status to other drugs, medicaments and biological substances; Z79.82 Long term (current) use of aspirin; Z79.899 Other long term (current) drug therapy; Z79.4 Long term (current) use of insulin
CPT/HCPCS: 93005; 93971; 99284

== ENCOUNTER 2023-10-27 19:47 | Emergency (ER) | payer MEDICARE, MEDICAID ==
[~2023-10-27] VITALS: Ht 167.6 cm; Wt 23.7 kg
[2023-10-27 20:49] LABS: BILIRUBIN,URINE NEGATIVE (Neg); CLARITY,URINE CLEAR (Clear); COLOR,URINE YELLOW (Yellow); GLUCOSE, URINE NEGATIVE (Neg); KETONES,URINE NEGATIVE (Neg); LEUKOCYTE ESTERASE ,URINE NEGATIVE (Neg); NITRITES, URINE NEGATIVE (Neg); OCCULT BLOOD,URINE NEGATIVE (Neg); PROTEIN,URINE NEGATIVE (Neg)
[2023-10-27 20:51] LABS: URINE HCG NEGATIVE (NEG)
[2023-10-27 20:54] LABS: UA COLLECTION TYPE CLN CATCH MIDSTREAM
[2023-10-27 21:44] LABS: BASOPHILS # (AUTO) 0.1 X10'3 (0-0.2); BASOPHILS % (AUTO) 0.7 % (0-1); EOSINOPHILS # (AUTO) 0.2 X10'3 (0-0.9); EOSINOPHILS % (AUTO) 2.3 % (0-6); HEMATOCRIT 38.1 % (35.0-45.0); HEMOGLOBIN 12.3 g/dl (12.0-16.0); LYMPHOCYTES # (AUTO) 3.7 X10'3 (1.1-4.8); MEAN CORPUSCULAR HEMOGLOBIN 27.4 PG (27.0-31.0); MEAN CORPUSCULAR HGB CONC 32.2 g/dL (33.0-36.5); MEAN CORPUSCULAR VOLUME 85.1 FL (78-98); MEAN PLATELET VOLUME 9.9 FL (7.4-10.4); MONOCYTES # (AUTO) 0.3 X10'3 (0-0.9); MONOCYTES % (AUTO) 4.3 % (2-12); NEUTROPHILS # (AUTO) 3.8 X10'3 (1.8-7.7); NEUTROPHILS % (AUTO) 46.7 % (42-75); PLATELET COUNT 200 X10'3 (140-440); RED BLOOD COUNT 4.48 X10'6 (4.20-5.60); RED CELL DISTRIBUTION WIDTH 18.2 % (11.5-14.5); WHITE BLOOD COUNT 8.1 X10'3 (4.5-11.0)
[2023-10-27 21:56] LABS: ALANINE AMINOTRANSFERASE 53 U/L (12-78); ALBUMIN 3.9 G/DL (3.4-5.0); ALKALINE PHOSPHATASE 73 IU/L (46-116); ANION GAP 7 (8-16); ASPARTATE AMINO TRANSFERASE 57 U/L (10-37); BILIRUBIN,TOTAL 0.4 MG/DL (0.1-1.0); BLOOD UREA NITROGEN 11 MG/DL (7-18); BUN/CREATININE RATIO 13.9 (10.0-20.0); CHLORIDE 105 MMOL/L (99-107); CREATININE 0.79 MG/DL (0.40-0.90); GLUCOSE 108 MG/DL (70-104); LIPASE 47 U/L (16-77); SODIUM 143 MMOL/L (135-145); TOTAL CARBON DIOXIDE 30.8 MMOL/L (24-32); TOTAL PROTEIN 7.7 G/DL (6.4-8.2); eCRCL 33 ML/MIN; eGFR 78 ML/MIN
[2023-10-27] MEDS: normal saline 1000ML IV soln IVB ONE (22:16)
[2023-10-27 23:30] VITALS: BP 132/71; PULSE 62; RESP 14; TEMP 97.9; O2SAT 96
== END 2023-10-27 23:31 | disposition home or self-care (01) ==
LOC: ER 19:48
DX: R10.31 Right lower quadrant pain (principal); R10.32 Left lower quadrant pain; E78.00 Pure hypercholesterolemia, unspecified; E11.9 Type 2 diabetes mellitus without complications; G89.29 Other chronic pain; M54.9 Dorsalgia, unspecified; Z90.710 Acquired absence of both cervix and uterus; Z56.0 Unemployment, unspecified; Z88.8 Allergy status to other drugs, medicaments and biological substances; Z91.041 Radiographic dye allergy status; Z91.013 Allergy to seafood; Z79.82 Long term (current) use of aspirin; Z79.4 Long term (current) use of insulin; Z79.899 Other long term (current) drug therapy
CPT/HCPCS: 36415; 74018; 74176; 80053; 81003; 81025; 83690; 85025; 99284; J7030

== ENCOUNTER 2024-01-31 14:59 | Emergency (ER) | payer MEDICAID, MEDICARE, OTHER ==
[~2024-01-31] VITALS: Ht 167.6 cm; Wt 111.8 kg
[~2024-01-31 14:59] MED LIST changes: -ROSU40TA22 PO; +ROSU40TA71 PO
[2024-01-31 15:57] VITALS: BP 136/76; PULSE 84; RESP 16; TEMP 97.9; O2SAT 97
== END 2024-01-31 16:01 | disposition home or self-care (01) ==
LOC: ER 15:00
DX: S09.90XA Unspecified injury of head, initial encounter (principal); F07.81 Postconcussional syndrome; E78.00 Pure hypercholesterolemia, unspecified; E11.9 Type 2 diabetes mellitus without complications; G89.29 Other chronic pain; M54.9 Dorsalgia, unspecified; Z91.013 Allergy to seafood; Z88.8 Allergy status to other drugs, medicaments and biological substances; Z91.041 Radiographic dye allergy status; Z79.82 Long term (current) use of aspirin; Z79.4 Long term (current) use of insulin; Z79.84 Long term (current) use of oral hypoglycemic drugs; Z90.710 Acquired absence of both cervix and uterus
CPT/HCPCS: 99282

== ENCOUNTER 2024-04-25 15:03 | Emergency (ER) | payer MEDICARE, MEDICAID ==
[~2024-04-25] VITALS: Ht 167.6 cm; Wt 99.1 kg
[~2024-04-25 15:03] MED LIST changes: -ROSU40TA71 PO; +ROSU40TA89 PO; -SENN-263 PO; +SENN-360 PO
[2024-04-25 16:47] VITALS: BP 143/65; PULSE 69; RESP 16; TEMP 98.2; O2SAT 94
== END 2024-04-25 20:46 | disposition left against medical advice (07) ==
LOC: ER 15:04
DX: R42 Dizziness and giddiness (principal); Z53.21 Procedure and treatment not carried out due to patient leaving prior to being seen by health care provider
CPT/HCPCS: 93005

== ENCOUNTER 2024-06-01 19:48 | Emergency (ER) | payer OTHER, BC, MEDICAID ==
[~2024-06-01] VITALS: Ht 167.6 cm; Wt 100.2 kg
[2024-06-01 19:51] VITALS: BP 150/69; PULSE 74; RESP 18; TEMP 98; O2SAT 98
== END 2024-06-01 23:57 | disposition left against medical advice (07) ==
LOC: ER 19:49
DX: E16.2 Hypoglycemia, unspecified (principal); Z91.013 Allergy to seafood; Z91.041 Radiographic dye allergy status; Z88.8 Allergy status to other drugs, medicaments and biological substances; Z53.21 Procedure and treatment not carried out due to patient leaving prior to being seen by health care provider
CPT/HCPCS: 82948

== ENCOUNTER 2025-01-29 10:32 | Outpatient (CLI) | payer OTHER, MEDICARE, MEDICAID ==
--- NOTE | 2025-01-29 14:28 | RADIOLOGY REPORT ---
CLINICAL INDICATION: PAIN IN RIGHT KNEE;OTH TEAR OF UNSP MENISCUS, CURRENT INJURY, RIGHT KNEE TECHNIQUE: Multiplanar, multisequence MRI of the right knee was performed without contrast. Contrast: None. COMPARISON: None FINDINGS: Joint space and synovium: There is small knee joint effusion. No synovitis. Bones and articular cartilage: There is no evidence of acute fracture or bone marrow edema. The alignment is normal. Chondral fissures in the patellar apex. There is no significant articular cartilage loss in the medial or lateral tibiofemoral compartment. Menisci: The medial meniscus is intact. The lateral meniscus is intact. Tendons and ligaments: The tendons in the posterior knee are intact. The extensor mechanism is intact. The anterior cruciate ligament is intact. The posterior cruciate ligament is intact. The medial collateral ligament and the lateral collateral ligament stabilizing complex are intact. Muscles: Regional muscles are preserved in bulk and signal characteristics. Other: None. IMPRESSION: 1. Mild chondromalacia patella. 2. No acute bone or soft tissue injury in the right knee. 3. Small knee joint effusion.
== END 2025-01-29 23:59 | disposition home or self-care (01) ==
LOC: MRI02 10:32
PROVIDERS: ATTEND Family Medicine Sports Medicine
DX: S83.203A Other tear of unspecified meniscus, current injury, right knee, initial encounter (principal); M25.561 Pain in right knee; M25.462 Effusion, left knee; M22.41 Chondromalacia patellae, right knee; X58.XXXA Exposure to other specified factors, initial encounter; Y93.89 Activity, other specified; Y92.89 Other specified places as the place of occurrence of the external cause; Y99.8 Other external cause status
CPT/HCPCS: 73721